=== PATIENT | male | born 1940 | race Caucasian/White ===

== ENCOUNTER 2017-12-06 17:50 | Inpatient (IN) | payer OTHER, MEDICARE ==
[~2017-12-06] VITALS: Ht 188 cm; Wt 78.3 kg
[2017-12-06] MEDS ORDERED: ALBU3IS INH (18:18)
[2017-12-06] MEDS ORDERED: FURO20 PO (18:19)
[2017-12-06] MEDS ORDERED: LISI20 PO (18:21)
[2017-12-06] MEDS ORDERED: Metoprolol Succ25 MG PO (18:21)
[2017-12-06] MEDS ORDERED: Ipratropium Bro30 ML INH (18:21)
[2017-12-06] MEDS ORDERED: TAMS.4ER PO (18:22)
[2017-12-06] MEDS ORDERED: Multivitamin1 EAC1 PO (18:22)
[2017-12-06] MEDS ORDERED: SIMV10 PO (18:22)
[2017-12-06 19:11] LABS: Bun/Creatinine Ratio 17.9 (12.0-20.0); Calcium, Blood 9.2 mg/dL (8.5-10.1); Creatinine, Blood 1.45 mg/dL (0.60-1.20); Potassium, Blood 4.5 mmol/L (3.5-5.5)
[2017-12-06 19:18] LABS: Troponin I 4.53 ng/mL (0.000-0.040)
[2017-12-06 20:09] LABS: International Normalized Ratio 1.08; Prothrombin Time Results 11.1 Sec (9.7-11.5)
[2017-12-06 22:32] LABS: Creatine Kinase MB 7.1 ng/mL (0.0-3.6); Creatine Kinase MB Index 6.3 (0.0-4.0)
[2017-12-06 22:41] LABS: Troponin I 6.14 ng/mL (0.000-0.040)
[2017-12-07 05:50] LABS: BASOPHILS ABSOLUTE AUTO 0.07 K/mm3 (0.00-0.23); BASOPHILS PERCENT AUTO 1 % (0-2); EOSINOPHILS PERCENT AUTO 1 % (0-6); Hematocrit 41.8 % (37.0-53.0); Hemoglobin 13.8 g/dL (13.5-17.5); IMMATURE GRAN ABSOLUTE AUTO 0.02 K/mm3 (0.00-0.10); IMMATURE GRAN PERCENT AUTO 0 % (0-1); LYMPHOCYTES ABSOLUTE AUTO 1.79 K/mm3 (0.84-5.20); LYMPHOCYTES PERCENT AUTO 24 % (21-46); MONOCYTES ABSOLUTE AUTO 0.65 K/mm3 (0.16-1.47); MONOCYTES PERCENT AUTO 9 % (4-13); Mean Corpuscular HGB 31.5 pg (26.0-34.0); Mean Corpuscular Volume 95 fL (80-100); Mean Platelet Volume 10.5 fL (9.1-12.4); NEUTROPHILS ABSOLUTE AUTO 4.99 K/mm3 (1.96-9.15); NEUTROPHILS PERCENT AUTO 66 % (41-73); Platelet Count 163 K/mm3 (150-400); RDW Coefficient Variation 14.1 % (11.7-14.2); RDW Standard Deviation 49.9 fL (35.1-46.3); Red Blood Cell Count 4.38 M/mm3 (4.30-5.90); White Blood Cell Count 7.62 K/mm3 (4.00-11.30)
[2017-12-07 06:05] LABS: Bun/Creatinine Ratio 15.9 (12.0-20.0); Calcium, Blood 8.5 mg/dL (8.5-10.1); Creatine Kinase MB 6.3 ng/mL (0.0-3.6); Creatine Kinase MB Index 6.4 (0.0-4.0); Creatinine, Blood 1.57 mg/dL (0.60-1.20); Potassium, Blood 4.3 mmol/L (3.5-5.5)
[2017-12-07 06:16] LABS: Troponin I 6.44 ng/mL (0.000-0.040)
[2017-12-07 14:54] LABS: Creatine Kinase MB 6.1 ng/mL (0.0-3.6)
[2017-12-07 14:56] LABS: Troponin I 5.53 ng/mL (0.000-0.040)
[2017-12-08 04:28] LABS: Bun/Creatinine Ratio 16.8 (12.0-20.0); Calcium, Blood 8.7 mg/dL (8.5-10.1); Creatinine, Blood 1.61 mg/dL (0.60-1.20); Potassium, Blood 4.4 mmol/L (3.5-5.5)
[2017-12-09 04:33] LABS: Bun/Creatinine Ratio 17.7 (12.0-20.0); Calcium, Blood 8.6 mg/dL (8.5-10.1); Creatinine, Blood 1.41 mg/dL (0.60-1.20)
[2017-12-10 05:11] LABS: Anion Gap 10 mmol/L (6-16); Blood Urea Nitrogen 22 mg/dL (8-24); Bun/Creatinine Ratio 18.5 (12.0-20.0); CO2, Blood 24 mmol/L (21-32); Calcium, Blood 8.6 mg/dL (8.5-10.1); Chloride, Blood 101 mmol/L (98-108); Creatinine, Blood 1.19 mg/dL (0.60-1.20); Glomerular Filtration Rate >60 (60-); Glucose, Blood 83 mg/dL (70-99); Potassium, Blood 4.5 mmol/L (3.5-5.5); Sodium, Blood 135 mmol/L (136-145)
== END 2017-12-10 15:20 | disposition short-term general hospital (02) | DRG 280 ==
LOC: ER 17:50 → ICUW 20:13 → PCU 21:19 → ICUW 12-07 16:55 → PCU 12-08 15:15
PROVIDERS: Emergency Medicine; Internal Medicine
PROC: 5A09357 Assistance with Respiratory Ventilation, Less than 24 Consecutive Hours, Continuous Positive Airway Pressure (ICD-10-PCS; principal; 2017-12-07)
DX: I21.4 Non-ST elevation (NSTEMI) myocardial infarction (principal); I50.21 Acute systolic (congestive) heart failure; I42.0 Dilated cardiomyopathy; N17.9 Acute kidney failure, unspecified; I35.0 Nonrheumatic aortic (valve) stenosis; H93.19 Tinnitus, unspecified ear; E78.00 Pure hypercholesterolemia, unspecified; I27.20 Pulmonary hypertension, unspecified; I25.10 Atherosclerotic heart disease of native coronary artery without angina pectoris; F17.210 Nicotine dependence, cigarettes, uncomplicated; N40.0 Benign prostatic hyperplasia without lower urinary tract symptoms; I11.0 Hypertensive heart disease with heart failure; F12.20 Cannabis dependence, uncomplicated; F41.0 Panic disorder [episodic paroxysmal anxiety]; G47.33 Obstructive sleep apnea (adult) (pediatric); Z85.828 Personal history of other malignant neoplasm of skin
CPT/HCPCS: 36415; 71260; 80048; 80053; 82550; 82553; 84484; 85025; 85610; 85730; 93005; 93010; 93306; 93454; 93571; 94640; 94660; 94760; 94761; 94762; 96365; 96375; 99152; 99153; 99285-25; C1732; C1769; C1894; C9113; J0360; J1644; J1650; J1940; J2250; J2270; J3010; J7030; Q9967